=== PATIENT | male | born 1960 | race Two or more races ===

== ENCOUNTER 2023-01-07 07:32 | Outpatient (CLI) | payer OTHER ==
[~2023-01-07 07:32] MED LIST: ASA81 MG; ATACAND4 MG; PLAVIX75 MG
== END 2023-01-07 07:35 | disposition home or self-care (01) ==
LOC: NUCLEAR 07:32
PROVIDERS: ATTEND Specialist
DX: I25.10 Atherosclerotic heart disease of native coronary artery without angina pectoris (principal); I99.8 Other disorder of circulatory system